=== PATIENT | female | born 1990 | race Caucasian/White ===

== ENCOUNTER 2019-04-04 08:10 | Inpatient (IN) ==
--- OUTSIDE RECORDS SUMMARY | 2019-04-04 08:12 | External Medical Summary | Continuity of Care Document ---
:1990 Author Name Sindy Velasquez Address Unavailable Unavailable , Care Team Providers Name Role Phone Madison GASPAR Unavailable [email or web address] PCP, UNKNOWN Unavailable Unavailable Unavailable Unavailable Unavailable Problems Amenorrhea (626.0) (N91.2) Supervision of normal (V22.1) (Z34.90) Allergies and Adverse Reactions Amoxicillin TABS (Allergy) Medications /Folic Acid TABS; TAKE 1 TABLET DAILY. NIK Wallace NP Start: 06-Feb-2014 Quantity: 30 Refills: 11 Procedures Supervision of normal Immunizations Immunizations not documented Social History - Smoking Status Never smoker Plan of Treatment Planned Observations Planned Goals not documented Results No Known Results Results not documented
[2019-04-04] MEDS ORDERED: OXYTOCIN 30 UNITS/500 ML BAG IV PRN ×2 (10:10→15:43)
[2019-04-04] MEDS ORDERED: miSOPROStol 50 MCG TAB PO ONE (10:10)
[2019-04-04 10:36] LABS: Hematocrit (blood only) 33.5 % (37-47); Hemoglobin 10.9 g/dL (12.0-16.0); Mean Corpuscular Hemoglobin 26.3 pg (25-34); Mean Corpuscular Volume 80.9 fL (80-100); Platelet Count 151 K/uL (130-400); RDW Coefficient of Variation 15.9 % (11.5-14.5); RDW Standard Deviation 46.6 fL (36.4-46.3); Red Blood Count 4.14 M/uL (4.2-5.4); White Blood Count 6.63 K/uL (4.8-10.8)
[2019-04-04 11:05] LABS: Mean Corpuscular Hgb Conc 32.5 g/dL (32-36)
--- NOTE | 2019-04-04 14:39 | Labor Progress Brief Note ---
Date of Service April 04, 2019 Pt seen and examined H&P done' Results & Data Vital Signs (Past 12 Hours) Vital Signs Temp Pulse Resp BP 04/04/19 10:34 36.9 C 75 20 119/72 04/04/19 08:17 74 122/83 04/04/19 08:16 37.0 C 18
--- NOTE | 2019-04-04 15:45 | Labor Progress Brief Note ---
Date of Service April 04, 2019 Pt doing well FHR; CAT1 Ct ; 2-4mins VE; /-2 Will start Pitocin augmentation Results & Data Vital Signs (Past 12 Hours) Vital Signs Temp Pulse Resp BP BP 04/04/19 15:15 36.8 C 18 122/71 04/04/19 14:46 88 122/71 04/04/19 10:34 36.9 C 75 20 119/72 04/04/19 08:17 74 122/83 04/04/19 08:16 37.0 C 18
[2019-04-04] MEDS: LACTATED RINGER'S 1,000 ML IV PRN ×3 (16:04→22:06)
[2019-04-04] MEDS ORDERED: BUPIVACAINE 0.25% 30 ML VIAL ONE ×2 (17:21→22:20)
[2019-04-04] MEDS ORDERED: fentaNYL citrate 100 MCG/2 ML VIAL ONE ×2 (17:21→22:20)
[2019-04-04] MEDS ORDERED: ePHEDrine sulfate 50 MG/ML AMP ONE (17:21)
[2019-04-04] MEDS ORDERED: fentaNYL 2MCG/ML ROPIV 1.25MG/ML 100 ML BAG EPI ONE (17:22)
--- NOTE | 2019-04-04 18:16 | Anesthesiology Consultation ---
Date of Service April 04, 2019 History Height/Weight Height: 5 ft 2 in Weight: 88.904 kg Allergies Allergy/AdvReac Type Severity Reaction Status Date / Time amoxicillin Allergy Severe Swelling Verified 04/04/19 08:21 of Lip/Tongue/Throat latex Allergy Intermediate RASH Verified 07/24/16 07:58 Medications Home Medications Medication Instructions Recorded Confirmed Last Taken vit no.[id number]-illxq 1 tab PO DAILY 04/04/19 04/04/19 04/04/19 [ Vitamin] Active Medications Generic Name Dose Route Start Last Admin Trade Name Freq PRN Reason Stop Dose Admin Lactated Ringer's 1,000 mls @ 125 mls/hr 04/04/19 10:10 04/04/19 18:10 Lr IV 04/06/19 10:09 125 mls/hr .Q8H PRN Administration L&D Protocol Protocol Oxytocin 30 units in 500 mls @ 6 mls/hr 04/04/19 15:43 04/04/19 17:51 Pitocin IV 05/04/19 15:42 0.36 units/hr .Q24H PRN 6 mls/hr Labor Induction/Augmentation Titration Protocol 0.36 UNITS/HR NPO Date Last Intake of Fluids: 04/04/19 Time Last Intake of Fluids: 16:00 Date Last Intake of Solids: 04/03/19 Time Last Intake of Solids: 18:30 Past Medical History Medical History Anemia GERD (gastroesophageal reflux disease) Obese Exercise / Class Metabolic Activity II 4-5 Yardwork/Stairs/Walk up hill Past Anesthesia History No Hx of Anesthesia Complications and No Family Hx of Anesthesia Complications History of PONV No Hx of PONV and No Hx of Motion Sickness Social History Smoking Status: Never smoker Hx Alcohol Use: No Hx Substance Use: No substance use type: does not use Physical Exam Vital Signs Last Vital Signs Temp 36.8 C 04/04/19 15:15 Pulse 85 04/04/19 18:09 Resp 18 04/04/19 15:15 BP 127/82 04/04/19 18:05 Pulse Ox 100 04/04/19 18:09 Constitutional + obese ENMT Mouth: no dentition abnormality Thyromental Distance: < 3.5 Finger Breadths Mallampati Class: II Neck normal visual inspection and trachea midline; neck extension not limited Respiratory normal respiratory effort Auscultation: lungs clear to auscultation bilaterally Cardiovascular Rate/Rhythm: regular rate and regular rhythm Heart Sounds: no murmur Musculoskeletal Spine: lumbar spine normal to inspection; normal cervical ROM Neurologic moves all extremities Motor/Sensory: no sensory deficit Psychiatric Orientation: alert and oriented x 3 Testing Laboratory Results 04/04/19 10:24
--- NOTE | 2019-04-04 18:19 | Anesthesiology Consultation ---
Date of Service April 04, 2019 Assessment & Plan Chart Review Chart Review: Acceptable Risk for Surgery, Patient NOT seen in Pre Admission Testing and Acceptable Risk for Labor Epidural Consults Requested none ASA ASA2 Proposed Anesthesia Anesthesia Type: General and Labor Epidural Risk / Benefits Reviewed With: PT / POA / Parent / Guardian, Accepts Plan and Informed Consent Obtained History Height/Weight Height: 5 ft 2 in Weight: 88.904 kg Allergies Allergy/AdvReac Type Severity Reaction Status Date / Time amoxicillin Allergy Severe Swelling Verified 04/04/19 08:21 of Lip/Tongue/Throat latex Allergy Intermediate RASH Verified 07/24/16 07:58 Medications Home Medications Medication Instructions Recorded Confirmed Last Taken vit no.[id number]-[id number] 1 tab PO DAILY 04/04/19 04/04/19 04/04/19 [ Vitamin] Active Medications Generic Name Dose Route Start Last Admin Trade Name Freq PRN Reason Stop Dose Admin Lactated Ringer's 1,000 mls @ 125 mls/hr 04/04/19 10:10 04/04/19 18:10 Lr IV 04/06/19 10:09 125 mls/hr .Q8H PRN Administration L&D Protocol Protocol Oxytocin 30 units in 500 mls @ 6 mls/hr 04/04/19 15:43 04/04/19 17:51 Pitocin IV 05/04/19 15:42 0.36 units/hr .Q24H PRN 6 mls/hr Labor Induction/Augmentation Titration Protocol 0.36 UNITS/HR NPO Date Last Intake of Fluids: 04/04/19 Time Last Intake of Fluids: 16:00 Date Last Intake of Solids: 04/03/19 Time Last Intake of Solids: 18:30 Past Medical History Medical History Anemia GERD (gastroesophageal reflux disease) Obese Exercise / Class Metabolic Activity II 4-5 Yardwork/Stairs/Walk up hill Past Anesthesia History No Hx of Anesthesia Complications and No Family Hx of Anesthesia Complications History of PONV No Hx of PONV and No Hx of Motion Sickness Social History Smoking Status: Never smoker Hx Alcohol Use: No Hx Substance Use: No substance use type: does not use Physical Exam Vital Signs Last Vital Signs Temp 36.8 C 04/04/19 15:15 Pulse 77 04/04/19 18:14 Resp 18 04/04/19 15:15 BP 127/82 04/04/19 18:05 Pulse Ox 100 04/04/19 18:14 Constitutional + obese ENMT Mouth: no dentition abnormality Thyromental Distance: < 3.5 Finger Breadths Mallampati Class: II Neck normal visual inspection and trachea midline; neck extension not limited Respiratory normal respiratory effort Auscultation: lungs clear to auscultation bilaterally Cardiovascular Rate/Rhythm: regular rate and regular rhythm Heart Sounds: no murmur Musculoskeletal Spine: lumbar spine normal to inspection; normal cervical ROM Neurologic moves all extremities Motor/Sensory: no sensory deficit Psychiatric Orientation: alert and oriented x 3 Testing Laboratory Results 04/04/19 10:24
[2019-04-04] MEDS ORDERED: NALOXONE HCL 1 MG in SODIUM CHLORIDE 0.9% 1000ML 1,000 ML IV PRN (18:42)
[2019-04-04] MEDS ORDERED: ONDANSETRON INJ 2 MG/ML 2 ML VIAL IV PRN (18:42)
[2019-04-04] MEDS ORDERED: fentaNYL 2MCG/ML ROPIV 1.25MG/ML 100 ML BAG EPI PRN (18:42)
[2019-04-04] MEDS ORDERED: PROMETHAZINE HCL 25 MG in SODIUM CHLORIDE 0.9% 50 ML IV PRN (18:42)
[2019-04-04] MEDS ORDERED: DiphenhydrAMINE HCL 50 MG/ML VIAL IV PRN (18:42)
[2019-04-04] MEDS ORDERED: ePHEDrine sulfate 50 MG/ML AMP IV PRN (18:42)
[2019-04-04] MEDS ORDERED: NALBUPHINE HCL INJ 10 MG/ML AMP IV PRN (18:42)
[2019-04-04] MEDS ORDERED: NALOXONE HCL 0.4 MG/1 ML VIAL/CARP IV PRN (18:42)
[2019-04-04] MEDS ORDERED: METHYLERGONOVINE MALEATE 0.2 MG/ML AMP ONE (22:34)
[2019-04-04] MEDS ORDERED: miSOPROStol 200 MCG TAB ONE (22:36)
[2019-04-04] MEDS ORDERED: IBUPROFEN 600 MG TAB PO ONE (22:45)
--- NOTE | 2019-04-04 23:03 | Anesthesiology Progress Note ---
Date of Service April 04, 2019 Anesthesia Post Procedure Vital Signs Vital Signs: Temp Pulse Resp BP BP Pulse Ox 04/04/19 23:00 88 129/91 04/04/19 22:45 75 126/83 04/04/19 22:40 86 100 04/04/19 22:39 91 H 134/76 04/04/19 22:35 97 H 100 04/04/19 22:33 78 129/67 04/04/19 22:30 80 99 04/04/19 22:25 94 H 99 04/04/19 22:20 105 H 99 04/04/19 22:19 105 H 91 04/04/19 22:15 97 H 99 04/04/19 22:10 99 H 97 04/04/19 22:09 82 117/58 L 04/04/19 22:05 93 H 99 04/04/19 22:00 88 100 04/04/19 21:55 88 132/83 99 04/04/19 21:50 90 99 04/04/19 21:45 83 99 04/04/19 21:40 87 98 04/04/19 21:39 86 127/77 04/04/19 21:35 83 98 04/04/19 21:30 88 98 04/04/19 21:25 86 99 04/04/19 21:24 90 114/66 04/04/19 21:20 98 H 99 04/04/19 21:15 82 98 04/04/19 21:10 112 H 98 04/04/19 21:09 37.0 C 87 18 118/71 04/04/19 21:05 88 98 04/04/19 21:00 98 H 98 04/04/19 20:55 96 H 98 04/04/19 20:54 90 114/72 04/04/19 20:50 85 98 04/04/19 20:45 100 H 99 04/04/19 20:40 105 H 119/74 98 04/04/19 20:35 103 H 98 04/04/19 20:30 91 H 98 04/04/19 20:25 85 98 04/04/19 20:20 95 H 99 04/04/19 20:15 84 99 04/04/19 20:10 82 99 04/04/19 20:09 90 124/83 04/04/19 20:05 80 98 04/04/19 20:00 78 98 04/04/19 19:55 77 99 04/04/19 19:54 80 125/79 04/04/19 19:50 82 99 04/04/19 19:45 80 99 04/04/19 19:40 90 135/78 99 04/04/19 19:35 90 99 04/04/19 19:30 94 H 99 04/04/19 19:26 96 H 119/85 04/04/19 19:25 97 H 99 04/04/19 19:20 79 99 04/04/19 19:15 36.9 C 79 18 130/77 100 04/04/19 19:10 77 135/78 98 04/04/19 19:05 71 99 04/04/19 19:00 75 99 04/04/19 18:55 84 99 04/04/19 18:53 75 140/88 04/04/19 18:52 77 132/83 04/04/19 18:50 69 132/74 100 04/04/19 18:47 73 130/70 04/04/19 18:45 65 137/74 100 04/04/19 18:44 76 136/82 04/04/19 18:42 68 95/58 L 04/04/19 18:41 70 90/54 L 04/04/19 18:40 69 89/52 L 99 04/04/19 18:38 81 108/67 04/04/19 18:35 85 121/75 04/04/19 18:34 101 H 114/73 99 04/04/19 18:29 87 99 04/04/19 18:25 87 133/86 04/04/19 18:24 97 H 99 04/04/19 18:19 96 H 100 04/04/19 18:14 77 100 04/04/19 18:09 85 100 04/04/19 18:05 81 127/82 04/04/19 18:04 86 100 04/04/19 17:59 78 100 04/04/19 17:50 82 100 04/04/19 17:45 86 100 04/04/19 17:40 82 100 04/04/19 17:35 86 98 04/04/19 17:32 81 127/80 04/04/19 17:30 84 98 04/04/19 17:29 83 126/78 04/04/19 15:15 36.8 C 18 122/71 04/04/19 14:46 88 122/71 04/04/19 10:34 36.9 C 75 20 119/72 04/04/19 08:17 74 122/83 04/04/19 08:16 37.0 C 18 Pain Intensity Bilateral Perineal: Pain Intensity: 1 Notes Mental Status: alert / awake / arousable Nausea / Vomiting: adequately controlled Pain: adequately controlled Airway Patency, RR, SpO2: stable & adequate BP & HR: stable & adequate Hydration State: stable & adequate Neuraxial Anesthesia: was administered and sensory block is resolving Anesthetic Complications: no major complications apparent
--- NOTE | 2019-04-04 23:04 | Anesthesia Procedure Note ---
Date of Service April 04, 2019 Anesthesia Post Epidural Note Vital Signs Vital Signs: Temp Pulse Resp BP Pulse Ox 37.0 C 88 18 129/91 100 04/04/19 21:09 04/04/19 23:00 04/04/19 21:09 04/04/19 23:00 04/04/19 22:40 Pain Intensity Bilateral Perineal: Pain Intensity: 1 Notes Mental Status: alert / awake / arousable Nausea / Vomiting: adequately controlled Pain: adequately controlled Airway Patency, RR, SpO2: stable & adequate BP & HR: stable & adequate Hydration State: stable & adequate Neuraxial Anesthesia: was administered and sensory block is resolving Anesthetic Complications: no major complications apparent Epidural: Removed without complications and With tip intact
[2019-04-05] MEDS ORDERED: DIPHTHERIA/TETANUS/PERTUSSIS 0.5 ML SYR/VIAL IM ONE (01:46)
[2019-04-05] MEDS ORDERED: ACETAMINOPHEN 325 MG TAB PO PRN (01:46)
[2019-04-05] MEDS ORDERED: BISACODYL 10 MG SUPP PR PRN (01:46)
[2019-04-05] MEDS ORDERED: HYDROCORTISONE ACETATE 25 MG SUPP PR PRN (01:46)
[2019-04-05] MEDS ORDERED: miSOPROStol 200 MCG TAB PR ONE (01:46)
[2019-04-05] MEDS ORDERED: OXYTOCIN 30 UNITS/500 ML BAG IV PRN (01:46)
[2019-04-05] MEDS ORDERED: BENZOCAINE 20% AER SPR 82.5 GM CAN EXT PRN (01:46)
[2019-04-05] MEDS ORDERED: METHYLERGONOVINE MALEATE 0.2 MG/ML AMP IM ONE (01:46)
[2019-04-05] MEDS ORDERED: SUPERCREAM 0.870% 15 GM JAR EXT PRN (01:46)
[2019-04-05] MEDS: PRENATAL VITAMIN 1 TAB PO SCH (07:56)
[2019-04-05] MEDS: DOCUSATE SODIUM 100 MG CAP PO SCH ×2 (07:56→20:43)
[2019-04-05] MEDS: FERROUS SULFATE 325 MG TAB PO SCH (07:56)
--- NOTE | 2019-04-05 08:22 | Obstetrical Progress Note ---
Date of Service April 05, 2019 Physical Exam Physical Exam: abdomen soft and non tender vaginal bleeding scant hgb 10 no calf tenderness ambulating well Results & Data Vital Signs (Past 12 Hours) Vital Signs Temp Pulse Pulse Resp BP BP Pulse Ox 04/05/19 07:48 37 C 68 20 132/88 98 04/05/19 04:25 36.7 C 67 18 119/79 04/05/19 01:30 36.9 C 70 18 119/73 04/05/19 00:52 36.9 C 18 04/05/19 00:42 85 124/70 04/05/19 00:15 73 18 130/87 04/05/19 00:00 73 139/86 04/04/19 23:45 77 18 139/96 04/04/19 23:30 71 18 135/87 04/04/19 23:15 82 18 134/85 04/04/19 23:00 88 18 129/91 04/04/19 22:45 36.8 C 75 18 126/83 04/04/19 22:40 86 100 04/04/19 22:39 91 H 134/76 04/04/19 22:35 97 H 100 04/04/19 22:33 78 129/67 04/04/19 22:30 80 99 04/04/19 22:25 94 H 99 04/04/19 22:20 105 H 99 04/04/19 22:19 105 H 91 04/04/19 22:15 97 H 99 04/04/19 22:10 99 H 97 04/04/19 22:09 82 117/58 L 04/04/19 22:05 93 H 99 04/04/19 22:00 88 100 04/04/19 21:55 88 132/83 99 04/04/19 21:50 90 99 04/04/19 21:45 83 99 04/04/19 21:40 87 98 04/04/19 21:39 86 127/77 04/04/19 21:35 83 98 04/04/19 21:30 88 98 04/04/19 21:25 86 99 04/04/19 21:24 90 114/66 04/04/19 21:20 98 H 99 04/04/19 21:15 82 98 04/04/19 21:10 112 H 98 04/04/19 21:09 37.0 C 87 18 118/71 04/04/19 21:05 88 98 04/04/19 21:00 98 H 98 04/04/19 20:55 96 H 98 04/04/19 20:54 90 114/72 04/04/19 20:50 85 98 04/04/19 20:45 100 H 99 04/04/19 20:40 105 H 119/74 98 04/04/19 20:35 103 H 98 04/04/19 20:30 91 H 98 04/04/19 20:25 85 98
[2019-04-05 16:13] VITALS: O2SAT 99
[2019-04-05] MEDS: IBUPROFEN 600 MG TAB PO PRN (18:46)
[2019-04-06] MEDS: IBUPROFEN 600 MG TAB PO PRN ×3 (06:20→12:28)
[2019-04-06 07:58] LABS: Hematocrit (blood only) 30.3 % (37-47); Hemoglobin 9.7 g/dL (12.0-16.0); Mean Corpuscular Hemoglobin 26.3 pg (25-34); Mean Corpuscular Volume 82.1 fL (80-100); Mean Platelet Volume 10.2 fL (7.4-10.4); Platelet Count 143 K/uL (130-400); RDW Coefficient of Variation 16.3 % (11.5-14.5); RDW Standard Deviation 48.5 fL (36.4-46.3); Red Blood Count 3.69 M/uL (4.2-5.4); White Blood Count 8.84 K/uL (4.8-10.8)
[2019-04-06 08:18] VITALS: BP 112/77; PULSE 66; TEMP 97.5
[2019-04-06] MEDS: FERROUS SULFATE 325 MG TAB PO SCH (09:10)
[2019-04-06] MEDS: DOCUSATE SODIUM 100 MG CAP PO SCH (09:10)
[2019-04-06] MEDS: PRENATAL VITAMIN 1 TAB PO SCH (09:10)
--- NOTE | 2019-04-06 10:35 | Obstetrical Progress Note ---
Date of Service April 06, 2019 Subjective doing fine ambulating well Physical Exam Constitutional: WD/WN, vitals as above comfortable fundus firm no edema neg Rodríguez's for discharge home Results & Data Vital Signs (Past 12 Hours) Vital Signs Temp Pulse Resp BP BP Pulse Ox 04/06/19 08:00 36.4 C L 66 18 112/77 99 04/05/19 23:50 36.5 C 69 18 114/79 Laboratory Results 04/04/19 04/06/19 10:24 07:31 WBC 6.63 8.84 RBC 4.14 L 3.69 L Hgb 10.9 L 9.7 L Hct 33.5 L 30.3 L MCV 80.9 82.1 MCH 26.3 26.3 MCHC 32.5 32.0 RDW Std Deviation 46.6 H 48.5 H RDW Coeff of Sajan 15.9 H 16.3 H Plt Count 151 143 MPV 10.0 10.2
[2019-04-06] MEDS ORDERED: BISACODYL 5 MG TABEC PO SCH (20:00)
--- NOTE | 2019-04-10 08:12 | Delivery Summary ---
DATE OF OPERATION: 04/09/2019 INDICATION FOR PROCEDURE: The patient is a 28-year-old G4, P1, who underwent a spontaneous vaginal delivery on 04/04/2019 at 2228 hours. Details of delivery, 's Apgars is in the infant's chart. The patient did well in delivery. Delivery was otherwise unremarkable. ESTIMATED BLOOD LOSS: 600 mL. All instruments were removed from the vagina and accounted for x2, including sponges, needles and retractors. The patient was discharged on 04/06/2019 to home in stable condition. I attest to the content of the Intraoperative Record and any orders documented therein. Any exception s are noted below.
== END 2019-04-06 12:40 | disposition home or self-care (01) | DRG 807 ==
LOC: 4S1 08:10 → 4S2 04-05 00:44

== ENCOUNTER 2021-01-29 20:58 | Inpatient (IN) ==
[2021-01-29] MEDS ORDERED: OXYTOCIN 30 UNITS/500 ML BAG IV PRN ×2 (21:17→23:28)
[2021-01-29] MEDS ORDERED: LACTATED RINGER'S 1,000 ML IV PRN (21:17)
--- NOTE | 2021-01-29 21:23 | History & Physical Report ---
Date of Service January 29, 2021 Assessment & Plan (1) Active labor at term: Admission and Anticipated Discharge Date Admission Date: 30-year-old -0-0-2 at 40 weeks and 2 days of gestation presenting with regular contractions and in active labor, Vital signs stable afebrile, GBS negative, heart rate reassuring, Plan to admit, monitor, labs, IV fluids and epidural for pain, Anticipate vaginal delivery. History of Present Illness Primary Care Provider: NO PCP Patient is a 30-year-old -0-0-2 at 40 weeks and 3 days of gestation who will has been feeling contractions for the last 2 hours and they have been getting more closer and more painful. She desires epidural for pain. She noted small amount of bloody mucus but denies any leakage or active vaginal bleeding. She reports good movements. Her has been uncomplicated. GBS negative. 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 Beliefs That Will Affect Care: None marital status: Current Living Situation: Spouse Current Living Situation Comment: and Son Feels Safe at Home: Yes Assistive Devices: None OB History 2 FT [employer] History NO H/O STD's, no h/o HSV Review of Systems All systems reviewed & are unremarkable except as noted in HPI & below Physical Exam Constitutional: WD/WN, vitals as above well developed, well nourished and + acute distress Gastrointestinal (Abdomen): normal bowel sounds, soft, nontender, no hepatosplenomegaly (Gravid, Oleg 8 to 9 pounds) Genitourinary: normal external appearance OB Exam Abdomen: + vertex Manual OB Exam: + cervical dilation 5 cm, + cervical effacement 80% and + station high OB Exam Monitor Tracing: + external uterine monitor used and + category I
[2021-01-29] MEDS ORDERED: NALOXONE HCL 0.4 MG/1 ML VIAL/CARP IV PRN (21:41)
[2021-01-29] MEDS ORDERED: diphenhydrAMINE 50 MG/ML VIAL IV PRN (21:41)
[2021-01-29] MEDS ORDERED: fentaNYL 2MCG/ML ROPIVACAINE 1.25MG/ML 100 ML BAG EPI PRN (21:41)
[2021-01-29] MEDS ORDERED: ONDANSETRON INJ 2 MG/ML 2 ML VIAL IV PRN (21:41)
[2021-01-29] MEDS ORDERED: NALOXONE HCL 1 MG in SODIUM CHLORIDE 0.9% 1000ML 1,000 ML IV PRN (21:41)
[2021-01-29] MEDS ORDERED: ePHEDrine sulfate 50 MG/ML AMP IV PRN (21:41)
[2021-01-29 21:42] LABS: Hematocrit (blood only) 36.4 % (37-47); Hemoglobin 12.1 g/dL (12.0-16.0); Mean Corpuscular Hemoglobin 28.1 pg (25-34); Mean Corpuscular Hgb Conc 33.2 g/dL (32-36); Mean Corpuscular Volume 84.7 fL (80-100); Mean Platelet Volume 9.8 fL (7.4-10.4); Platelet Count 179 K/uL (130-400); RDW Standard Deviation 49.3 fL (36.4-46.3); White Blood Count 8.18 K/uL (4.8-10.8)
[2021-01-29] MEDS ORDERED: fentaNYL 2MCG/ML ROPIVACAINE 1.25MG/ML 100 ML BAG EPI ONE (21:45)
[2021-01-29] MEDS ORDERED: ePHEDrine sulfate 50 MG/ML AMP ONE (21:45)
[2021-01-29] MEDS ORDERED: SODIUM CHLORIDE 0.9% INJ 10 ML VIAL ONE (21:45)
[2021-01-29] MEDS ORDERED: BUPIVACAINE 0.25% 30 ML VIAL ONE (21:45)
[2021-01-29] MEDS ORDERED: fentaNYL citrate 100 MCG/2 ML VIAL ONE (21:45)
--- NOTE | 2021-01-29 21:45 | Anesthesiology Consultation ---
Date of Service January 29, 2021 Assessment & Plan (1) Encounter for pre-operative examination: Chart Review Chart Review: Patient NOT seen in Pre Admission Testing and Acceptable Risk for Labor Epidural Consults Requested none History Height/Weight Height: 5 ft 2 in Weight: 90.904 kg Allergies Allergy/AdvReac Type Severity Reaction Status Date / Time amoxicillin Allergy Severe Swelling Verified 01/29/21 21:26 of Lip/Tongue/Throat latex Allergy Intermediate RASH Verified 01/29/21 21:26 Medications Home Medications Medication Instructions Recorded Confirmed Last Taken Vitamin 1 tab PO DAILY 04/04/19 01/29/21 01/29/21 Active Medications Generic Name Dose Route Start Last Admin Trade Name Freq PRN Reason Stop Dose Admin Lactated Ringer's 1,000 mls @ 150 mls/hr 01/29/21 21:17 01/29/21 21:41 Lr IV 01/31/21 21:16 999 mls/hr .Q6H40M PRN Administration L&D Protocol Protocol Past Medical History Medical History Anemia GERD (gastroesophageal reflux disease) Obese Exercise / Class Metabolic Activity II 4-5 Yardwork/Stairs/Walk up hill Past Anesthesia History No Hx of Anesthesia Complications and No Family Hx of Anesthesia Complications History of PONV No Hx of PONV and No Hx of Motion Sickness Social History Smoking Status: Never smoker Hx Alcohol Use: No Hx Substance Use: No substance use type: does not use Physical Exam Vital Signs Last Vital Signs Temp 36.8 C 01/29/21 21:08 Pulse 81 01/29/21 22:08 Resp 16 01/29/21 21:08 BP 153/87 H 01/29/21 21:29 Pulse Ox 99 01/29/21 22:08 Testing Laboratory Results 01/29/21 21:35
[2021-01-29] MEDS ORDERED: MEASLES, MUMPS & RUBELLA VIRUS VIAL SQ ONE (23:28)
[2021-01-29] MEDS ORDERED: HYDROCORTISONE ACETATE 25 MG SUPP PR PRN (23:28)
[2021-01-29] MEDS ORDERED: BENZOCAINE 20% AER SPR 82.5 GM CAN EXT PRN (23:28)
[2021-01-29] MEDS ORDERED: bisacodyL 10 MG SUPP PR PRN (23:28)
[2021-01-29] MEDS ORDERED: DIPHTHERIA/TETANUS/PERTUSSIS 0.5 ML SYR/VIAL IM ONE (23:28)
[2021-01-29] MEDS ORDERED: SUPERCREAM 0.870% 15 GM JAR EXT PRN (23:28)
--- NOTE | 2021-01-30 00:12 | Delivery Summary ---
DATE OF DELIVERY: 01/29/2021 TIME: 2313 hours. DETAILS OF DELIVERY: The patient was found to be fully dilated and desired to push. She pushed through only one contraction and delivered the head without difficulty. Shoulders came right after the head. Baby was handed off to the mother where mouth and nose were suctioned. Cord was clamped x2 and cut at 1- minute delay. Baby was vigorously crying and moving and then cord blood was obtained. Vagina and perineum were checked for lacerations. There was a very small first-degree laceration at the perineal skin. It was repaired with 3-0 Vicryl on SH needle. Excellent hemostasis was achieved. Rest of the vagina and perineum were intact. Placenta was found to be in the vagina, delivered spontaneously as intact and complete. Uterus was explored and found to be empty. Lower segment was cleared of all clots and debris. EBL was 50 mL. Fundus was firm. Mom and baby tolerated the procedure well. Sponge, lap, was needle count was correct x 2. The patient was a viable male , Apgars 8/10. No complications happened. I was present during whole procedure. Job ID: [id number] [facility]
[2021-01-30 06:43] LABS: Hematocrit (blood only) 31.9 % (37-47); Hemoglobin 10.5 g/dL (12.0-16.0); Mean Corpuscular Hemoglobin 27.7 pg (25-34); Mean Corpuscular Hgb Conc 32.9 g/dL (32-36); Mean Corpuscular Volume 84.2 fL (80-100); Mean Platelet Volume 10.1 fL (7.4-10.4); Platelet Count 166 K/uL (130-400); RDW Coefficient of Variation 15.9 % (11.5-14.5); RDW Standard Deviation 48.5 fL (36.4-46.3); Red Blood Count 3.79 M/uL (4.2-5.4); White Blood Count 9.54 K/uL (4.8-10.8)
--- NOTE | 2021-01-30 08:16 | Anesthesia Procedure Note ---
Date of Service January 30, 2021 Anesthesia Post Epidural Note Vital Signs Vital Signs: Temp Pulse Resp BP Pulse Ox 36.7 C 71 18 134/84 99 01/30/21 07:40 01/30/21 07:40 01/30/21 07:40 01/30/21 07:40 01/30/21 07:40 Notes Mental Status: alert / awake / arousable and participated in evaluation Nausea / Vomiting: adequately controlled Pain: adequately controlled Airway Patency, RR, SpO2: stable & adequate BP & HR: stable & adequate Hydration State: stable & adequate Neuraxial Anesthesia: was administered and sensory block resolved Anesthetic Complications: no major complications apparent and Pt Satisfied with anesthetic care Epidural: Removed without complications and With tip intact
[2021-01-30] MEDS: DOCUSATE SODIUM 100 MG CAP PO SCH ×2 (08:28→20:11)
[2021-01-30] MEDS: PRENATAL VITAMIN 1 TAB PO SCH (08:28)
[2021-01-30] MEDS: ACETAMINOPHEN 325 MG TAB PO PRN (08:28)
[2021-01-30] MEDS: FERROUS SULFATE 325 MG TAB PO SCH (08:28)
--- NOTE | 2021-01-30 10:30 | Obstetrical Progress Note ---
Date of Service January 30, 2021 Subjective Ambulation: ambulating normally Voiding: no voiding problems Passing Gas:: Yes Diet Tolerance:: regular diet Lochia:: Small Feeding Type:: breast feeding PPD#1 doing well Physical Exam Constitutional WD/WN, vitals as above comfortable abdomen soft and non-tender no edema neg Rodríguze's Results & Data ([facility]) Vital Signs (Past 12 Hours) Vital Signs Temp Pulse Pulse Resp BP BP Pulse Ox 01/30/21 07:40 36.7 C 71 18 134/84 99 01/30/21 02:30 37 C 77 18 124/75 01/30/21 01:30 82 116/71 01/30/21 01:15 78 117/71 01/30/21 01:00 72 18 112/68 01/30/21 00:45 73 115/70 01/30/21 00:30 78 16 117/69 01/30/21 00:00 18 01/29/21 23:46 74 135/59 L 01/29/21 23:45 16 01/29/21 23:30 87 16 123/82 01/29/21 23:23 85 99 01/29/21 23:18 81 99 01/29/21 23:13 114 H 100 01/29/21 23:08 89 100 01/29/21 23:03 83 122/82 99 01/29/21 22:58 82 99 01/29/21 22:53 75 99 01/29/21 22:48 80 100 01/29/21 22:47 79 127/75 01/29/21 22:43 87 99 01/29/21 22:38 84 99 01/29/21 22:33 106 H 98 01/29/21 22:31 96 H 103/77 01/29/21 22:29 84 125/77 Laboratory Results 01/29/21 01/30/21 21:35 06:12 WBC 8.18 9.54 RBC 4.30 3.79 L Hgb 12.1 10.5 L Hct 36.4 L 31.9 L MCV 84.7 84.2 MCH 28.1 27.7 MCHC 33.2 32.9 RDW Std Deviation 49.3 H 48.5 H RDW Coeff of Sajan 16.0 H 15.9 H Plt Count 179 166 MPV 9.8 10.1
[2021-01-30] MEDS: IBUPROFEN 600 MG TAB PO PRN ×2 (15:24→20:13)
[2021-01-30] MEDS ORDERED: bisacodyL 5 MG TABEC PO SCH (20:00)
[2021-01-31] MEDS: ACETAMINOPHEN 325 MG TAB PO PRN (00:46)
[2021-01-31 06:57] LABS: Hematocrit (blood only) 31.6 % (37-47); Hemoglobin 10.2 g/dL (12.0-16.0)
[2021-01-31] MEDS: PRENATAL VITAMIN 1 TAB PO SCH (08:10)
[2021-01-31] MEDS: FERROUS SULFATE 325 MG TAB PO SCH (08:11)
[2021-01-31] MEDS: DOCUSATE SODIUM 100 MG CAP PO SCH (08:11)
--- NOTE | 2021-01-31 08:59 | Obstetrical Progress Note ---
Date of Service January 31, 2021 Assessment & Plan Admission and Anticipated Discharge Date Admission Date: January 29, 2021 Subjective Patient is seen and examined. She feels well, no complaints. Ambulating without dizziness Voiding without difficulty Tolerating regular diet with out N&V Bleeding is minimal No fever/ chills/ CP/ SOB/ N&V/ Leg pain Breast feeding without problems Lab Results 01/29/21 01/30/21 01/31/21 Range/Units 21:35 06:12 06:30 WBC 8.18 9.54 (4.8-10.8) K/uL RBC 4.30 3.79 L (4.2-5.4) M/uL Hgb 12.1 10.5 L 10.2 L (12.0-16.0) g/dL Hct 36.4 L 31.9 L 31.6 L (37-47) % MCV 84.7 84.2 (80-100) fL MCH 28.1 27.7 (25-34) pg MCHC 33.2 32.9 (32-36) g/dL RDW Std Deviation 49.3 H 48.5 H (36.4-46.3) fL RDW Coeff of Sajan 16.0 H 15.9 H (11.5-14.5) % Plt Count 179 166 (130-400) K/uL MPV 9.8 10.1 (7.4-10.4) fL Vital Signs Temp Pulse Resp BP Pulse Ox 01/31/21 07:35 36.9 C 81 18 138/77 99 01/30/21 23:30 36.5 C 72 16 139/93 98 PE: General: Alert, orientedx3, NAD Abd: soft, NT, fundus firm, below Umbilicus Perineum intact, Lochia rubra minimal Ext; NT, no edema AP: 30 yo s/p , ppd# 2 VSS Afebrile doing well Continue routine care All questions were answered D/C home , f/u in office Results & Data ([facility]) Vital Signs (Past 12 Hours) Vital Signs Temp Pulse Resp BP Pulse Ox 01/31/21 07:35 36.9 C 81 18 138/77 99 01/30/21 23:30 36.5 C 72 16 139/93 98
== END 2021-01-31 14:00 | disposition home or self-care (01) | DRG 807 ==
LOC: OPB 20:58 → 4S1 21:01 → 4S2 01-30 02:06